=== PATIENT | female | born 1990 | race Hispanic/Latino ===

== ENCOUNTER → 2017-11-01 | Outpatient (CLI) | payer MEDICAID | END | disposition home or self-care (01) | LOC: RAH 08:34 | PROVIDERS: ATTEND Internal Medicine Cardiovascular Disease | DX: R19.00 Intra-abdominal and pelvic swelling, mass and lump, unspecified site (principal) | CPT/HCPCS: 76700 ==

== ENCOUNTER → 2018-01-23 | Outpatient (CLI) | payer MEDICAID | END | disposition home or self-care (01) | LOC: SHCH 12:55 | PROVIDERS: ATTEND Internal Medicine Cardiovascular Disease | DX: R01.1 Cardiac murmur, unspecified (principal) | CPT/HCPCS: 93306 ==

== ENCOUNTER → 2019-01-29 | Outpatient (CLI) | payer MEDICAID | END | disposition home or self-care (01) | LOC: SHCH 10:00 | PROVIDERS: ATTEND Internal Medicine Cardiovascular Disease | DX: I42.0 Dilated cardiomyopathy (principal) | CPT/HCPCS: 93306 ==

== ENCOUNTER → 2021-06-20 | Outpatient (CLI) | payer MEDICARE | END | disposition home or self-care (01) | LOC: SHCH 08:11 | PROVIDERS: ATTEND Internal Medicine Cardiovascular Disease | DX: I35.1 Nonrheumatic aortic (valve) insufficiency (principal) | CPT/HCPCS: 93306; 93356 ==

== ENCOUNTER → 2024-08-13 | Outpatient (CLI) | payer MEDICARE | END | disposition home or self-care (01) | LOC: SHCH 07:58 | PROVIDERS: ATTEND Internal Medicine Cardiovascular Disease | DX: M47.812 Spondylosis without myelopathy or radiculopathy, cervical region (principal); M48.02 Spinal stenosis, cervical region; M54.16 Radiculopathy, lumbar region; R01.1 Cardiac murmur, unspecified | CPT/HCPCS: 93306 ==